=== PATIENT | female | born 1990 | race American Indian/Alaskan Native ===

== ENCOUNTER 2017-10-24 13:32 | Inpatient (IN) | payer MEDICAID ==
[2017-10-24 13:57] VITALS: BMI 36.8
[2017-10-24 14:22] LABS: BASO % 0.9 % (0.0-2.0); EOS # 0.4 K/uL (0.0-0.7)
[2017-10-24 14:28] LABS: SQUAMOUS EPITHIAL 6 /hpf (0-5); URINE BACTERIA RARE (<OCC); URINE BILIRUBIN NEGATIVE (NEGATIVE); URINE BLOOD NEGATIVE (NEGATIVE); URINE CLARITY Hazy (Clear); URINE COLOR Yellow (YELLOW); URINE GLUCOSE (UA) NORMAL (Normal); URINE LEUKOCYTE ESTERASE NEG Leu/uL (Negative); URINE PROTEIN 1+ mg/dL (NEGATIVE)
--- NOTE | 2017-10-24 14:29 | C.PDOC ---
History Of Present Illness HX LIMITED, POOR HISTORIAN 26-YEAR-OLD FEMALE, PRESENTS TO THE EMERGENCY DEPARTMENT WITH COMPLAINTS SI/HI. PS SHE IS DANGER TO OTHERS "BUT I DON'T WANNA BE HERE" PATIENT WITH SI/HI. SHE IS NON COMPLIANT W MEDS. SENT FOR EVALUATION BY DR LITTLE. ALL OTHER HX LIMITED EXAM FLAT AFFECT DENIES ACTIVE SI/NO ACTIVE PSYCHOSIS Time Seen by Provider: 10/24/17 13:51 Chief Complaint (Nursing): Psychiatric Evaluation History Per: Patient History/Exam Limitations: no limitations Current Symptoms Are (Timing): Still Present Past Medical History Reviewed: Historical Data, Nursing Documentation, Vital Signs Vital Signs: Last Vital Signs Temp 97.9 F 10/25/17 06:16 Pulse 84 10/25/17 06:16 Resp 20 10/25/17 06:16 BP 104/68 10/25/17 06:16 Pulse Ox 99 10/24/17 16:19 - Medical History PMH: Anxiety, Depression, Schizophrenia ( PER CRC, SCHIZOEFFECTIVE DISORDER) Family History: States: Unknown Family Hx - Social History Hx Tobacco Use: Yes Hx Alcohol Use: Yes Hx Substance Use: No - Immunization History Hx Tetanus Toxoid Vaccination: No Hx Influenza Vaccination: No Hx Pneumococcal Vaccination: No Review Of Systems Except As Marked, All Systems Reviewed And Found Negative. Constitutional: Negative for: Fever, Chills Cardiovascular: Negative for: Chest Pain Respiratory: Negative for: Shortness of Breath Gastrointestinal: Negative for: Nausea, Vomiting Neurological: Negative for: Headache, Dizziness Psych: Positive for: Suicidal ideation (+HI). Negative for: Psychosis, Withdrawal Physical Exam - Physical Exam Appears: Non-toxic, No Acute Distress, Other (FLAT AFFECT. NO ACTIVE PSYCHOSIS. CALM) Skin: Normal Color, Warm, Dry, No Rash Head: Normacephalic Eye(s): bilateral: PERRL Oral Mucosa: Moist Lips: Normal Appearing Neck: Normal ROM Cardiovascular: Rhythm Regular, No Murmur Respiratory: Normal Breath Sounds, No Accessory Muscle Use Extremity: Normal ROM, No Deformity Neurological/Psych: Oriented x3, Normal Speech ED Course And Treatment - Laboratory Results Result Diagrams: 10/24/17 14:18 10/24/17 14:18 O2 Sat by Pulse Oximetry: 100 (ra) Pulse Ox Interpretation: Normal Reevaluation Time: 15:19 Reassessment Condition: Unchanged (MED CLEAR FOR CRISIS) Disposition Counseled Patient/Family Regarding: Studies Performed, Diagnosis - Disposition Disposition: HOSPITALIZED Disposition Time: 15:34 Condition: STABLE - POA Present On Arrival: None - Clinical Impression Clinical Impression: Schizoaffective disorder - Scribe Statement The provider has reviewed the documentation as recorded by the Scribe (Leif Jean Baptiste) Provider Attestation: All medical record entries made by the Scribe were at my direction and personally dictated by me. I have reviewed the chart and agree that the record accurately reflects my personal performance of the history, physical exam, medical decision making, and the department course for this patient. I have also personally directed, reviewed, and agree with the discharge instructions and disposition. Decision To Admit - Pt Status Changed To: Hospital Disposition Of: Inpatient - Admit Certification Admit to Inpatient:: After my assessment, the patient will require hospitalization for at least two midnights. This is because of the severity of symptoms shown, intensity of services needed, and/or the medical risk in this patient being treated as an outpatient. - InPatient: Physician Admission Certification: I certify that this patient requires 2 or more midnights of care for the following reason:: SEE NOTE - . Bed Request Type: Psychiatry Admitting Physician: Cris Edwards Patient Diagnosis: Schizoaffective disorder
[2017-10-24 14:34] LABS: ALB/GLOB RATIO 0.9 (1.0-2.1); ALBUMIN 4.6 g/dL (3.5-5.0); ALT/SGPT 11 U/L (9-52); AST/SGOT 26 U/L (14-36); BLOOD UREA NITROGEN 11 mg/dL (7-17); CALCIUM 9.7 mg/dl (8.6-10.4); EOS % 7.3 % (0.0-4.0); GFR AFRICAN-AMERICAN > 60; GFR NON-AFRICAN AMERICAN > 60; HEMOGLOBIN 12.9 g/dL (11.0-16.0); LYMPH # 2.2 K/uL (1.0-4.3); LYMPH % 42.8 % (20.0-40.0); MEAN CELL VOLUME 82.3 fL (81.0-99.0); MEAN CORPUSCULAR HGB CONC 32.8 g/dL (33.0-37.0); MEAN PLATELET VOLUME 7.6 fL (7.2-11.7); MONO # 0.4 K/uL (0.0-0.8); MONO % 7.8 % (0.0-10.0); NEUT # 2.1 K/uL (1.8-7.0); NEUT % 41.2 % (50.0-75.0); NRBC % 0.2 % (0.0-2.0); RBC 4.77 Mil/uL (3.80-5.20); RED CELL DISTRIBUTION WIDTH 12.3 % (11.5-14.5); WHITE BLOOD COUNT 5.1 K/uL (4.8-10.8)
[2017-10-24 14:51] LABS: BARBITURATES, UR NEGATIVE (NEGATIVE); BENZODIAZEPINES, UR NEGATIVE (NEGATIVE); OPIATES, UR NEGATIVE (NEGATIVE); PHENCYCLIDINE, UR NEGATIVE (NEGATIVE)
--- NOTE | 2017-10-24 17:08 | PCM.BM ---
<Kamryn Toledo - Last Filed: 10/24/17 17:06> Treatment Plan Problems - Problems identified on initial assessmt Depression Date Initiated: 10/24/17 Time Initiated: 17:07 Assessment reference: NA Status: Active psychosis Date Initiated: 10/24/17 Time Initiated: 17:07 Assessment reference: NA Status: Active Treatment assets and liabiliti Patient Assests: cooperative, educated, ADL independent, physically healthy, negotiates basic needs, cognitively intact Patient Liabilities: live alone (lives with her parents), financial problems, substance abuse (None), medical problems (None) - Milieu Protocol Maintain good personal hygiene: daily Encourage regular showers, daily Remind patient to perform daily oral care, daily Assist patient to perform ADL's (Self) Conduct patient checks and document Observation sheet: Q15 minutes (Safety) Maintain personal safety: every shift Educate patient to report safety concerns to staff, every shift Monitor environment for contraband/sharps Medication safety: Monitor for expected outcome, potential side effects: every shift, Assess barriers to learning: every shift, Assess readiness for medication education: every shift <Cris Edwards - Last Filed: 10/27/17 10:48> - Diagnosis (1) Schizoaffective disorder Status: Acute Interventions: 10/27/17 10:48 * Assess/adjust medications daily and /or as needed * See patient on an individual basis 7x/week to assess status of hallucinations * Discuss risks, benefits, side effects and alternatives of medications * <Rosalba Bey - Last Filed: 10/27/17 14:20> Family Contact Family involvement: Patient does not wish Family/SO involvement Family contact: Patient declines to allow family contact at present - Goals for Treatment Patient goals for treatment: " I want to go to [facility] for counseling." Discharge/Continuing Care - Education Needs Education Needs: Patient Medication, Patient Coping Skills, Patient Aftercare Safety Plan - Discharge Discharge Criteria: Free of Suicidal thoughts, Normal sleep pattern, Reduction of target symptoms Discharge to:: Home - Treatment Team Participation Discussed with Family/SO: No Was Patient/Family/SO present at Treatment Team Meeting: Yes
[2017-10-25 06:17] VITALS: RESP 20
--- NOTE | 2017-10-25 11:56 | PCM.PSYCH ---
Initial Psychiatric Evaluation - Initial Psychiatric Evaluation Type of Admission: Voluntary Legal Status: Capacity Chief Complaint (in patient's own words): I m feeling isabel.' History of Present Illness and Precipitating Events: Pt is a 26 y/o AAF, who was sent to the ED by Dr Han from [facility], due to the bizarre, and paranoid behavior and vague suicidal statements. Pt reportedly has been non-compliant with medications and is not receptive to monthly injections that prompted patient becoming agitated and making inappropriate comparisons. Pt reported a history of mental illness, psychiatric treatment and voluntary inpatient admissions for recurrent manic and depressive episodes. She remained disorganized, and internally preoccupied thought out the interview. She remained superficially cooperative but guarded about the details. Pt according to her mother has never been receptive to psychiatric treatment and believes that all medications are poisonous. Pt reportedly is consistently on-line researching adverse side-effects of psycho-tropic medications warranting recent medication non-compliance. Pt was dismissive of psychiatric complaints and denied feeling suicidal and homicidal despite reports of mental decline. Pt continued to have loose associations, however she appeared kempt. Pt denied any auditory of visual hallucinations but remained internally preoccupied during the interview. She denied any drinking or any substance abuse. PMH None reported Current Medications: Active Medications Generic Name Dose Route Start Last Admin Trade Name Freq PRN Reason Stop Dose Admin Clonazepam 1 mg 10/24/17 20:15 10/25/17 09:47 Klonopin PO 1 mg BID KHUSHI Administration Lorazepam 1 mg 10/24/17 20:06 10/24/17 23:14 Ativan PO 1 mg Q6 PRN Administration Anxiety Quetiapine Fumarate 100 mg 10/24/17 22:00 10/25/17 09:47 Seroquel PO 100 mg Q12 KHUSHI Administration Past Psychiatric History - Past Psychiatric History Previous Treatment History: Inpatient Pertinent Medical Hx (Current Medical&Sleep Prob, Allergies): Allergies Allergy/AdvReac Type Severity Reaction Status Date / Time No Known Allergies Allergy Verified 10/24/17 13:55 QUEtiapine [SEROquel] 150 mg PO DAILY 10/24/17 Review of Systems - Review of Systems All systems: reviewed and no additional remarkable complaints except - Psychiatric Psychiatric: Anxiety, Auditory Hallucinations, Irritability, Paranoia, Visual Hallucinations Mental Status Examination - Personal Presentation Personal Presentation: Looks stated age - Affect Affect: Constricted, Depressed - Motor Activity Motor Activity: Psychomotor Retardation - Reliability in Providing Information Reliability in Providing Information: Poor, due to alteration in thoughts, Poor , due to altered mood - Speech Speech: Disorganized - Mood Mood: Depressed, Anxious - Formal Thought Process Formal Thought Process: Hallucinations, Delusions, Paranoia, Loosening of associations - Hallucinations/Delusions Hallucinations: Visual, Auditory Delusions: Persecution - Obsessions/Compulsions Obsessions: No Compulsions: No - Cognitive Functions Orientation: Person, Place, Situation, Time Sensorium: Alert Attention/Concentration: Attentive Abstract Thinking: [place] Estimate of Intelligence: Below average Judgement: Imparied, as evidence by: Poor judgement, Imparied, as evidence by: Lack of insight into illness - Risk Risk: Diminished functioning - Strength & Assets Inventory Strength & Assets Inventory: Family support DSM 5 DX - DSM 5 DSM 5 Diagnosis: Schizoaffective disorder bipolar type - Recommended/Plan of Treatment Treatment Recommendations and Plan of Treatment: Schizoaffective disorder bipolar type CBT Psychoeducation Supportive therapy, group therapy, individual therapy Seroquel 100 mg PO BID Prolixin 5 mg PO BID Neurontin 100 mg by mouth 3 times a day Trazodone 50 mg by mouth daily at bedtime - Smoking Cessation Smoking Cessation Initiated: No
[2017-10-26 08:55] VITALS: O2SAT 99
--- NOTE | 2017-10-26 10:50 | PCM.PYCHPN ---
Psychiatric Progress Note - Psychiatric Progress Note Patient seen today, length of contact: 15 min Patient Chief Complaint: i want to leave.' Problems Identified/Issues Discussed: Patient seen and evaluated, chart reviewed and discussed with the nurse. Patient remained disorganized and internally preoccupied. Patient still appears paranoid and delusional. She reports depressed mood but denies any SI/HI. Patient remained isolated, confined and withdrawn. Patient is compliant with medications and denies any side effects. Symptoms are improving but need more time to stabilize. Support and psychoeducation given. Medication Change: Yes (increase prolixin) Medical Record Reviewed: Yes Mental Status Examination - Cognitive Function Orientation: Person, Place, Situation, Time Memory: Intact Attention: Poor Concentration: Poor Association: Loose Fund of Knowledge: Poor - Mood Mood: Depressed, Anxious - Affect Affect: Constricted, Depressed - Formal Thought Process Formal Thought Process: Hallucinations, Delusions, Paranoia, Loosening of associations - Suicidal Ideation Suicidal Ideation: No - Homicidal Ideation Homicidal Ideation: No Goal/Treatment Plan - Goal/Treatment Plan Need for Continued Stay: Severe depression anxiety, Severe functional impairment Progress Toward Problem(s) and Goals/Treatment Plan: Schizoaffective disorder bipolar type CBT Psychoeducation Supportive therapy, group therapy, individual therapy Seroquel 100 mg PO BID Prolixin 10 mg PO BID Neurontin 100 mg by mouth 3 times a day Trazodone 50 mg by mouth daily at bedtime - Smoking Cessation Smoking Cessation Initiated: No
[2017-10-28 06:39] VITALS: BP 119/81; PULSE 80; TEMP 98
--- NOTE | 2017-10-28 09:57 | PCM.PYCHDC ---
Mental Status Examination - Mental Status Examination Orientation: Person, Place, Situation, Time Memory: Intact Mood: Neutral Affect: Constricted Speech: Soft Attention: WNL Concentration: WNL Association: WNL Fund of Knowledge: WNL Formal Thought Process: No Impairment Description of patient's judgement and insight: GOOD, FAIR Psychotic Thoughts and Behaviors: denies any AVH Suicidal Ideation: No Current Homicidal Ideation?: No Discharge Summary - Discharge Note Reason for Hospitalization: Pt is a 26 y/o AAF, who was sent to the ED by Dr Han from [facility], due to the bizarre, and paranoid behavior and vague suicidal statements. Pt reportedly has been non-compliant with medications and is not receptive to monthly injections that prompted patient becoming agitated and making inappropriate comparisons. Pt reported a history of mental illness, psychiatric treatment and voluntary inpatient admissions for recurrent manic and depressive episodes. She remained disorganized, and internally preoccupied thought out the interview. She remained superficially cooperative but guarded about the details. Pt according to her mother has never been receptive to psychiatric treatment and believes that all medications are poisonous. Pt reportedly is consistently on-line researching adverse side-effects of psycho-tropic medications warranting recent medication non-compliance. Pt was dismissive of psychiatric complaints and denied feeling suicidal and homicidal despite reports of mental decline. Pt continued to have loose associations, however she appeared kempt. Pt denied any auditory of visual hallucinations but remained internally preoccupied during the interview. She denied any drinking or any substance abuse. Consultations:: List each consultation separately and include: 1. Reason for request. 2. Findings. 3. Follow-up Summary of Hospital Course include:: 1. Description of specific treatment plan utilized for patients during their course of treatmen. 2. Summarize the time- course for resolution of acute symptoms and/or regressed behaviors. 3. Describe issues identified and worked on during hospitalization. 4. Describe medication utilized. 5. Describe medical problems identified and treated. 6. Reassessment of suicide risk Summary of Hospital Course: Pt is a 26 y/o AAF, who was sent to the ED by Dr Han from [facility], due to the bizarre, and paranoid behavior and vague suicidal statements. Pt reportedly has been non-compliant with medications and is not receptive to monthly injections that prompted patient becoming agitated and making inappropriate comparisons. Pt reported a history of mental illness, psychiatric treatment and voluntary inpatient admissions for recurrent manic and depressive episodes. She remained disorganized, and internally preoccupied thought out the interview. She remained superficially cooperative but guarded about the details. Pt according to her mother has never been receptive to psychiatric treatment and believes that all medications are poisonous. Pt reportedly is consistently on-line researching adverse side-effects of psycho-tropic medications warranting recent medication non-compliance. Pt was dismissive of psychiatric complaints and denied feeling suicidal and homicidal despite reports of mental decline. Pt continued to have loose associations, however she appeared kempt. Pt denied any auditory of visual hallucinations but remained internally preoccupied during the interview. She denied any drinking or any substance abuse. PM None reported - Diagnosis (1) Schizoaffective disorder Current Visit: Yes Status: Acute - Final Diagnosis (DSM 5) Condition upon Discharge: STABLE DSM 5: Schizoaffective disorder bipolar type Disposition: HOME/ ROUTINE Follow-up Treatment Plan: Schizoaffective disorder bipolar type CBT Psychoeducation Supportive therapy, group therapy, individual therapy Seroquel 100 mg PO BID Prolixin 10 mg PO BID Neurontin 100 mg by mouth 3 times a day Trazodone 50 mg by mouth daily at bedtime Prescriptions/Medication Reconciliation: Benztropine [Cogentin] 1 mg PO BID #60 tab fluPHENAZine [Prolixin] 10 mg PO BID #60 tab QUEtiapine [Seroquel] 100 mg PO HS #30 tab - Smoking Cessation Smoking Cessation Medication prescribed: No - Antipsychotic Medications Pt discharged on 2 or more routine antipsychotic medications: No
== END 2017-10-28 10:45 | disposition home or self-care (01) | DRG 430 ==
LOC: C.ER 13:32 → C.5E 15:35
PROVIDERS: ADMIT Psychiatry & Neurology Psychiatry; ATTEND Psychiatry & Neurology Psychiatry
PROC: GZHZZZZ Group Psychotherapy (ICD-10-PCS; principal; 2017-10-24)
DX: F25.0 Schizoaffective disorder, bipolar type (principal); Z91.14 Patient's other noncompliance with medication regimen